=== PATIENT | female | born 1930 | race Caucasian/White ===

== ENCOUNTER 2017-12-16 15:00 | Emergency (ER) | payer OTHER ==
[~2017-12-16] VITALS: Ht 162.6 cm; Wt 47.6 kg
[2017-12-16] MEDS ORDERED: BENICAR40 M1 PO (15:10)
[2017-12-16] MEDS ORDERED: FUROSEMIDE20 M1 PO (15:10)
[2017-12-16] MEDS ORDERED: COUMADIN1 M1 PO (15:10)
[2017-12-16] MEDS ORDERED: AMIODARONE HCL200 M2 PO (15:10)
[2017-12-16] MEDS ORDERED: PREDNISONE5 M1 PO (15:11)
[2017-12-16] MEDS ORDERED: DILTIAZEM HCL90 MG PO (15:11)
[2017-12-16] MEDS ORDERED: METOPROLOL SUCC25 M1 PO (15:12)
[2017-12-16] MEDS ORDERED: LEVOTHYROXINE75 MCG PO (15:12)
[2017-12-16] MEDS ORDERED: PREDNISONE1 MG PO (15:12)
--- NOTE | 2017-12-16 15:13 | ED GENERAL ADULT ---
See Addendum History of Present Illness General Chief Complaint: General Adult Stated Complaint: BIBA BODY PAIN, CELLULITIS Source: patient, EMS Vital Signs & Intake/Output Vital Signs & Intake/Output Vital Signs Date Time Temp Pulse Resp B/P B/P Pulse O2 O2 Flow FiO2 Mean Ox Delivery Rate 12/16 1829 97.5 67 18 140/60 96 Room Air 12/16 1604 Room Air 12/16 1507 97.6 74 15 144/76 97 Room Air Room Air Allergies Coded Allergies: Sulfa (Sulfonamide Antibiotics) (Intermediate, RASH 12/16/17) strawberry (Intermediate, ABDOMINAL CRAMPING 12/16/17) Triage Nurses Notes Reviewed? yes Onset: Abrupt Duration: day(s): Injury Environment: home Severity: mild HPI: 87yoF w/ hx of RA, Afib p/w acute total body pain. Over the weekend, she had 'overdosed on a laxative', leading to diarrhea which made her 'dry'. She had called her PMD who recommended holding her lasix. This, she believes led to her leg swelling. She also developed total body pain, which was worse today. She denies any trauma, or any changes in activity. She tried 1/2 tab of unknown dosage of Vicodin and reports didn't relief her pain, although Tramadol has relieved her pain in the past. She also has chronic leg ulcers for which she gets home care w/ a visiting home care nurse 5days/wk. Because of the fluid accumulation, she has developed blisters on her feet. Currently, she is denying any change in urine or odor, fever, chills, N/V/D, CP, palpitations or SOB. She is also on Coumadin, Amiodarone, Olmesartan, Diltiazem, Metoprolol, Levothyroxine and Prednisone She lives w/ her and at baseline, able to ambulate with a 4wheel walker. She denies any toxic habits She follows w/ Dr. Sandoval and Dr. Gina Martinez ([facility] STUDENT,[place]) General Exam Limitations: no limitations Reconcile Medications Acetaminophen 500 MG TABLET 2 TAB PO Q9H PAIN (Reported) Amiodarone HCl 200 MG TABLET 1 TAB PO DAILY HEART (Reported) Diltiazem HCl 90 MG TABLET 1 TAB PO DAILY HEART (Reported) Furosemide 20 MG TABLET 1 TAB PO DAILY WATER RETENTION (Reported) Levothyroxine Sodium 75 MCG TABLET 1 TAB PO DAILY AC THYROID (Reported) Metoprolol Succinate 25 MG TAB 1 TAB PO DAILY HEART (Reported) Olmesartan Medoxomil (Benicar) 40 MG TABLET 1 TAB PO DAILY HEART (Reported) Oxycodone HCl/Acetaminophen (Percocet 5-325 MG Tablet) 5 MG-325 MG TABLET 1-2 TAB PO Q6P PRN PAIN Prednisone 5 MG TABLET 1 TAB PO DAILY STEROID (Reported) Prednisone 1 MG TABLET 1 TAB PO DAILY STEROID (Reported) Vit C/E/Zn/Coppr/Lutein/Zeaxan (Preservision Areds 2 Softgel) 250-200-40 CAPSULE 1 CAP PO BID EYE (Reported) Warfarin Sodium (Coumadin) 1 MG TABLET 0.5 TAB PO MoWe BLOOD THINNER ( Reported) (Catherine MA,Avinash Olivia) Past History Travel History Traveled to [place] past 21 day No Medical History Any Pertinent Medical History? see below for history Cardiovascular: AFIB History of MRSA: Yes History of VRE: No History of CDIFF: No Psychosocial History Who do you live with Daughter Services at Home None What is your primary language Austrian Family History Family History, If Any: FATHER, ; Cause: CHF (congestive heart failure). BROTHER, . (Dc Lutz) Surgical History Surgical History: non-contributory Psychosocial History Tobacco Use: Never used ETOH Use: denies use Illicit Drug Use: denies illicit drug use Family History Hx Contributory? No (Catherine MA,Avinash Olivia) Review of Systems Review of Systems Constitutional: Reports: malaise. EENTM: Reports: no symptoms. Respiratory: Reports: no symptoms. Cardiovascular: Reports: no symptoms. GI: Reports: no symptoms. Genitourinary: Reports: no symptoms. Musculoskeletal: Reports: see HPI, back pain. Skin: Reports: lesions. Neurological/Psychological: Reports: no symptoms. (Dc Lutz) Physical Exam Physical Exam General Appearance: alert, cachetic, thin, frail Extremities: contractures of hands and feet Core Measures ACS in differential dx? No CVA/TIA Diagnosis: No Sepsis Present: No Sepsis Focused Exam Completed? No (Dc Lutz) Physical Exam Head: atraumatic, normal appearance Eyes: Bilateral: PERRL, EOMI. Ears, Nose, Throat: normal pharynx, normal ENT inspection, hearing grossly normal Neck: normal inspection, supple, full range of motion Respiratory: normal breath sounds, chest non-tender, no respiratory distress, lungs clear Cardiovascular: regular rate/rhythm, normal peripheral pulses Gastrointestinal: normal bowel sounds, soft, non-tender, no organomegaly Back: STAGE 1 DECUB MIDTHORACIC AREA Neurologic/Psych: no motor/sensory deficits, awake, alert, oriented x 3, normal mood/affect Skin: warm/dry (Catherine MA,Avinash Olivia) Progress Differential Diagnoses I considered the following diagnoses in my evaluation of the patient: [UTI, wound infection, worsening RA, fibromyalgia, fatigue] Plan of Care: Orders Procedure Date/time Status Regular Diet 12/17 B Active Regular Diet 12/16 D Complete URINALYSIS 12/16 152 Complete TROPONIN LEVEL 12/16 152 Complete COMPREHENSIVE METABOLIC PANEL 12/16 152 Complete CBC WITHOUT DIFFERENTIAL 12/16 152 Complete EKG 12/16 152 Active Laboratory Tests 12/16/17 1635: Urine Color YEL, Urine Clarity CLEAR, Urine pH 6.0, Ur Specific [place] 1.010, Urine Protein NEG, Urine Ketones NEG, Urine Nitrite NEG, Urine Bilirubin NEG, Urine Urobilinogen 0.2, Ur Leukocyte Esterase SMALL H, Ur Microscopic SEDIMENT EXAMINED, Urine RBC RARE, Urine WBC 10-15 H, Ur Epithelial Cells FEW, Urine Bacteria MANY H, Urine Hemoglobin NEG, Urine Glucose NEG 12/16/17 1545: Anion Gap 11, Estimated GFR 36 L, BUN/Creatinine Ratio 46.4 H, Glucose 98, Calcium 8.7, Total Bilirubin 1.1, AST 32, ALT 42, Alkaline Phosphatase 136 H, Troponin I 0.02, Total Protein 5.7 L, Albumin 3.1 L, Globulin 2.6, Albumin/ Globulin Ratio 1.2, CBC w Diff NO MAN DIFF REQ, RBC 4.27, MCV 94.3, MCH 29.6, MCHC 31.4 L, RDW 15.9 H, MPV 6.8 L, Gran % 93.1 H, Lymphocytes % 3.5 L, Monocytes % 3.1, Eosinophils % 0.2, Basophils % 0.1, Absolute Granulocytes 12.3 H, Absolute Lymphocytes 0.5 L, Absolute Monocytes 0.4, Absolute Eosinophils 0, Absolute Basophils 0 Likely sources of total body pain include UTI, wound infection, worsening RA, fibromyalgia,fatigue or some hematologic process. Work up with CBC, CMP, trops, EKG, urinalysis. Initial ED EKG: normal p-waves, normal QRS complex, normal sinus rhythm, 1st degree block; LAFB; T wave flattening in lateral leads (Dc Lutz) Differential Diagnoses I considered the following diagnoses in my evaluation of the patient: Comments: Patient had slight relief with tramadol would prefer to take Percocet. Patient will have nursing services at her house tomorrow. Patient will take Percocet as needed for the pain. Patient knows that narcotics are constipating and she will require to take a stool softener while on them. Patient also advised to follow- up with Dr. Eisenberg as he does house calls. (Catherine MA,Avinash Olivia) Departure Departure Condition: Stable Departure Forms: Customer Survey General Discharge Information (Dc Lutz) Departure Disposition: HOME OR SELF CARE Clinical Impression Primary Impression: Rheumatoid arthritis Referrals: Agusto MA,Sun Estrella MD,Brock Ames Additional Instructions: follow up with dr. eisenberg take percocet as needed for pain take a stool softener as needed for constipation Prescriptions: Current Visit Scripts Oxycodone HCl/Acetaminophen (Percocet 5-325 MG Tablet) 1-2 TAB PO Q6P PRN PAIN #20 TAB Resident Co-Sign Statement Statement: ED Attending supervision documentation- [X] I saw and evaluated the patient. I have also reviewed all the pertinent lab results and diagnostic results. I agree with the findings and the plan of care as documented in the Resident's documentation. [X] I have reviewed the ED Record and agree with the Resident's documentation. [] Additions or exceptions (if any) to the Resident's note and plan are summarized below: [] (Catherine MA,Avinash Olivia) Critical Care Note Critical Care Note Critical Care Time: non-applicable (Avinash Alexander MD)
[2017-12-16] MEDS ORDERED: ACETAMINOPHEN500 M4 PO (15:14)
[2017-12-16] MEDS ORDERED: PRESERVISION A1 EAC1 PO (15:14)
[2017-12-16 15:56] LABS: ABSOLUTE BASOPHIL COUNT 0 /CUMM (0.0-0.2); ABSOLUTE EOSINOPHIL COUNT 0 /CUMM (0.0-0.7); ABSOLUTE GRANULOCYTE CT 12.3 /CUMM (1.4-6.5); ABSOLUTE LYMPH COUNT 0.5 /CUMM (1.2-3.4); ABSOLUTE MONOCYTE COUNT 0.4 /CUMM (0.10-0.60); BASOPHIL % 0.1 % (0.0-2.0); EOSINOPHIL % 0.2 % (0-5); HEMATOCRIT 40.2 % (37-47); MEAN CORPUSCULAR HGB 29.6 PG (27.0-31.0); MEAN CORPUSCULAR HGB CONC 31.4 G/DL (33.0-37.0); MEAN CORPUSCULAR VOLUME 94.3 FL (81.0-99.0); MEAN PLATELET VOLUME 6.8 FL (7.4-10.4); PLATELET COUNT 255 /CUMM (130-400); RBC DISTRIBUTION WIDTH 15.9 % (11.5-14.5); RED BLOOD CELL CT 4.27 /CUMM (4.20-5.40); WHITE BLOOD CELL COUNT 13.3 /CUMM (4.8-10.8)
[2017-12-16 16:07] LABS: GRANULOCYTE % 93.1 % (42.2-75.2)
[2017-12-16] MEDS ORDERED: PERCOCET 5-3251 EACH PO (18:18)
[2017-12-16 20:25] VITALS: BP 142/73
== END 2017-12-16 20:39 ==
LOC: ERH 15:00
PROVIDERS: Emergency Medicine
DX: M06.9 Rheumatoid arthritis, unspecified (principal); I48.91 Unspecified atrial fibrillation
CPT/HCPCS: 81001; 93005; 93010